=== PATIENT | female | born 1980 | race Caucasian/White ===

== ENCOUNTER 2022-04-18 14:59 | Emergency (ER) | payer OTHER ==
[2022-04-18] MEDS ORDERED: BEBTELOVIMAB (EUA) 175 MG/2 ML VIAL IVPUSH ONE (15:06)
[2022-04-18 16:01] VITALS: RESP 18; BMI 18.2
[2022-04-18 18:34] VITALS: BP 150/104; PULSE 115; TEMP 98
[2022-04-18 18:36] LABS: HEMATOCRIT 42.9 % (32.4-45.2); HEMOGLOBIN 14.5 GM/dL (10.7-15.3); MCH 31.1 pg (25.7-33.7); MCHC 33.8 g/dl (32.0-36.0); MEAN CELL VOLUME 92.1 fl (80-96); MEAN PLT VOLUME 7.1 fl (7.5-11.1); PLATELET COUNT 252 10^3/uL (134-434); RBC 4.66 M/mm3 (3.60-5.2); RDW 13.9 % (11.6-15.6); WHITE BLOOD COUNT 6.4 K/mm3 (4.0-10.0)
[2022-04-18 18:57] LABS: BLOOD UREA NITROGEN 14.9 mg/dL (7-18); CALCIUM 9.9 mg/dL (8.5-10.1)
[2022-04-18 18:58] LABS: ALBUMIN 4.3 g/dl (3.4-5.0)
[2022-04-18 19:01] LABS: CREATININE 0.8 mg/dL (0.55-1.3)
[2022-04-18 19:02] LABS: BILIRUBIN,TOTAL 0.7 mg/dL (0.2-1)
== END 2022-04-18 20:16 | disposition left against medical advice (07) ==
LOC: JER 14:59
DX: U07.1 COVID-19 (principal)
CPT/HCPCS: 36415; 80053; 84439; 84443; 85027; 96374; 99284-25; M0222; Q0222